=== PATIENT | female | born 1990 | race Caucasian/White ===

== ENCOUNTER → 2020-06-01 | Day surgery (SDC) | payer BC, OTHER ==
[~2020-06-01] MED LIST: BENTYL20 MG PO; CHOLESTYRAMINE P4 GM PO; FAMOTIDINE20 MG PO; FENTANYL CITRATE/PF 100MCG/2 ML INJ ONE; LIDOCAINE HCL 2% LOCAL INJ 5 ML SDV VIAL INJ ONE; MIDAZOLAM HCL 2 MG/2 ML VIAL ONE; PREPARATION H26 GM TOP; PRIMELLA PO; PROBIOTIC & AC1 EACH PO; PROPOFOL IV EMULSION 10 MG/ML 20 ML VIAL ONE; ZOFRAN ODT8 MG PO
[2020-06-01 14:40] VITALS: BP 132/86
== END | disposition home or self-care (01) ==
LOC: OR 10:57
PROVIDERS: ATTEND Internal Medicine Gastroenterology
DX: K29.50 Unspecified chronic gastritis without bleeding (principal); K20.90 Esophagitis, unspecified without bleeding; K44.9 Diaphragmatic hernia without obstruction or gangrene; K29.80 Duodenitis without bleeding; K21.9 Gastro-esophageal reflux disease without esophagitis; K64.8 Other hemorrhoids; E66.01 Morbid (severe) obesity due to excess calories; N39.0 Urinary tract infection, site not specified; Z86.19 Personal history of other infectious and parasitic diseases; Z87.898 Personal history of other specified conditions
CPT/HCPCS: 43239; 45378; 81025; J2001; J2250; J2704; J3010

== ENCOUNTER → 2020-09-07 | Day surgery (SDC) | payer OTHER ==
[~2020-09-07] MED LIST changes: -FENTANYL CITRATE/PF 100MCG/2 ML INJ ONE; +PANTOPRAZOLE SO20 MG PO; +[UNRECOGNIZED DRUG - OTHER] PO
[2020-09-07 15:05] VITALS: BP 114/71
== END | disposition home or self-care (01) ==
LOC: OR 12:32
PROVIDERS: ATTEND Internal Medicine Gastroenterology
DX: K29.50 Unspecified chronic gastritis without bleeding (principal); R93.89 Abnormal findings on diagnostic imaging of other specified body structures; K31.89 Other diseases of stomach and duodenum; K44.9 Diaphragmatic hernia without obstruction or gangrene; D72.829 Elevated white blood cell count, unspecified; R00.2 Palpitations; R06.83 Snoring; Z88.2 Allergy status to sulfonamides; Z86.16 Personal history of COVID-19; Z86.19 Personal history of other infectious and parasitic diseases
CPT/HCPCS: 43239; 81025; J2001; J2250; J2704

== ENCOUNTER → 2024-01-07 | Day surgery (SDC) | payer OTHER ==
[~2024-01-07] MED LIST changes: +ACETAMINOPHEN 1000 MG/100 ML IV ONE; +ALBUTEROL 90 MCG/ACT INHALER INH ONE; +BIRTH CONTROL PO; +BUPIVACAINE 0.25% 30ML SDV ONE; +DEXAMETHASONE SOD PHOS INJ 4 MG/ML SDV ONE; +DICYCLOMINE HCL10 MG PO; +DOXYCYCLINE HY100 MG PO; +EPINEPHRINE HCL 1:1000 1ML 1 MG/ML AMP ONE; +FAMOTIDINE 20 MG/2 ML VIAL IV ONE; +FENTANYL CITRATE/PF 100MCG/2 ML INJ ONE; -MIDAZOLAM HCL 2 MG/2 ML VIAL ONE; +MINOXIDIL2.5 MG PO; +NORTREL1 EACH PO; +ONDANSETRON HCL INJ 2MG/ML 2ML 2 MG/ML VIAL ONE; +PANTOPRAZOLE SO40 MG PO; +ROCURONIUM BROMIDE 10 MG/ML 5ML VIAL IV ONE; +SEVOFLURANE INHAL SOLN 250 ML PEN BTL ONE; +SPIRONOLACTONE25 MG PO; +SUCCINYLCHOLINE CHLORIDE 20 MG/ML 10ML VIAL ONE; +SUGAMMADEX SODIUM 200 MG/2 ML VIAL IV ONE; +[UNRECOGNIZED DRUG - OTHER] PO; +[UNRECOGNIZED DRUG - OTHER] PO
[2024-01-07] MEDS: LACTATED RINGER'S 1,000 ML ONE (09:34)
[2024-01-07 14:07] VITALS: TEMP 97.9
[2024-01-07] MEDS: FENTANYL CITRATE/PF 100MCG/2 ML INJ ONE (14:31)
[2024-01-07] MEDS: METOCLOPRAMIDE HCL 10 MG/2ML VIAL ONE (14:47)
[2024-01-07 15:05] VITALS: BP 140/78; PULSE 96; RESP 18; O2SAT 95
== END | disposition home or self-care (01) ==
LOC: OR 09:23
PROVIDERS: ATTEND Surgery
DX: K43.6 Other and unspecified ventral hernia with obstruction, without gangrene (principal); I10 Essential (primary) hypertension; J45.909 Unspecified asthma, uncomplicated; K21.9 Gastro-esophageal reflux disease without esophagitis; Z88.2 Allergy status to sulfonamides; Z79.899 Other long term (current) drug therapy
CPT/HCPCS: 49594; 81025; C1781; J0131; J0171; J0330; J0690; J1100; J2001; J2405; J2704; J2765; J3010; J7121